=== PATIENT | female | born 1990 | race Caucasian/White ===

== ENCOUNTER 2020-03-08 17:41 | Outpatient (CLI) | payer BC ==
[~2020-03-08] VITALS: Ht 157.5 cm; Wt 59.5 kg
--- NOTE | 2020-03-08 17:50 | NUR ---
1750-37.4 week G1 to LR 6 for complaint of contractions for the last 24 hours. Denies LOF or VB. Reports not taking any OTC pain medications for discomforts. Assessment complete. SVE / per Ramila MAYA, Updated on plan of care. Will monitor.
[2020-03-08 17:51] VITALS: BP 117/78; PULSE 104; TEMP 98.8
[2020-03-08] MEDS ORDERED: PRENATAL (18:24)
[2020-03-08] MEDS ORDERED: NATURAL IRON65 MG (18:25)
[2020-03-08 18:30] VITALS: BP 117/78; PULSE 104; TEMP 98.8
[2020-03-08 19:10] VITALS: BP 124/80; PULSE 82
--- NOTE | 2020-03-08 19:10 | NUR ---
SVE UNCHANGED AFTER 1 HOUR, MONITORING DC'D AT THIS TIME.
--- NOTE | 2020-03-08 19:25 | NUR ---
191- PT MAY DC HOME PER DR. MEADE. 1924- DISCHARGE INSTRUCTIONS REVIEWED WITH PT AND SPOUSE, QUESTIONS ENCOURAGED AND ANSWERED. PT LEFT THE UNIT AMBUL[facility] FOR HOME.
== END 2020-03-08 19:25 | disposition home or self-care (01) ==
LOC: LDRO 17:41 → LDR 17:50 → LDRO 19:25
DX: O62.9 Abnormality of forces of labor, unspecified (principal); Z3A.37 37 weeks gestation of pregnancy
CPT/HCPCS: OP

== ENCOUNTER → 2020-03-14 | Outpatient (CLI) | payer BC ==
[~2020-03-14] MED LIST: MOTRIN 800800 MG/TAB PO; NATURAL IRON65 MG; PRENATAL
== END ==
LOC: ZCOL.LAB
DX: Z20.828 Contact with and (suspected) exposure to other viral communicable diseases (principal)